=== PATIENT | male | born 1955 | race Caucasian/White ===

== ENCOUNTER 2020-05-16 07:44 | Day surgery (SDC) | payer OTHER ==
[~2020-05-16] VITALS: Ht 172.7 cm; Wt 91.8 kg
[~2020-05-16 07:44] MED LIST: ALLO300 PO; Androgel5 GM; FEXPSEER PO; FISH1000; FISH1000 PO; GEMF600; GEMF600 PO; HYDR.5TC; IBUP800; Prevacid Soluta30 MG JT; TAMS.4ER; TRIA80TC TOP; ZOLP10 PO
[2020-05-16] MEDS ORDERED: Lisinopril2.5 MG (08:07)
[2020-05-16] MEDS ORDERED: DOXE10 (08:08)
[2020-05-16] MEDS ORDERED: METFORMIN ER G500 MG (08:08)
--- NOTE | 2020-05-16 08:21 | NUR ---
05/16/20 0821 Mercedez Adler 1 TRY RIGHT UPPER ARM BLEW
== END 2020-05-16 10:09 | disposition home or self-care (01) ==
LOC: ORSCSDS 07:44
PROVIDERS: Internal Medicine Gastroenterology
PROC: 0DBN8ZX Excision of Sigmoid Colon, Via Natural or Artificial Opening Endoscopic, Diagnostic (ICD-10-PCS; principal; 2020-05-16 09:00)
PROC: 0DBH8ZX Excision of Cecum, Via Natural or Artificial Opening Endoscopic, Diagnostic (ICD-10-PCS; principal; 2020-05-16 09:00)
DX: Z12.11 Encounter for screening for malignant neoplasm of colon (principal); Z86.010 Personal history of colon polyps; D12.0 Benign neoplasm of cecum; K63.5 Polyp of colon; Z79.899 Other long term (current) drug therapy; K57.30 Diverticulosis of large intestine without perforation or abscess without bleeding; K64.4 Residual hemorrhoidal skin tags; K21.9 Gastro-esophageal reflux disease without esophagitis; Z87.891 Personal history of nicotine dependence
CPT/HCPCS: 82947; 88305; J2704; J7120

== ENCOUNTER 2021-03-08 06:29 | Day surgery (SDC) | payer OTHER ==
[~2021-03-08] VITALS: Ht 172.7 cm; Wt 95.4 kg
[~2021-03-08 06:29] MED LIST changes: +DOXE10; +Lisinopril2.5 MG; +METFORMIN ER G500 MG PO
[2021-03-08] MEDS ORDERED: Aspir 8181 MG PO (07:02)
[2021-03-08] MEDS ORDERED: LACT PO (07:04)
[2021-03-08] MEDS ORDERED: ATOR40TA PO (09:55)
--- NOTE | 2021-03-08 12:17 | NUR ---
DISCHARGE PT REMAINED A&OX3 AND DENIED ANY PAIN DURING RECOVERY. RIGHT RADIAL SITE TR BAND REMOVED-CLOTH DOT, WHITE BOARD AND SLING IN PLACE-CDI NO HEMATOMA NOTED. PT UP TO RESTROOM WITH STEADY GAIT AND REQUIRED LITTLE ASSISTANCE FROM SPOUSE WITH DRESSING. IV DC'D WITH CANULA IN TACT. NEW PRESCRIPTION CALLED TO [facility] ([place]). DISCHARGE PAPERWORK GONE OVER WITH PT AND SPOUSE. PT AND SPOUSE VERBALLY STATED THE UNDRESTANDING OF THE DISCHARGE EDUCATION AND DENIED ANY QUESTIONS AT THIS TIME. PT WHEELED OUT BY THIS NURSE.
[2021-04-03] MEDS ORDERED: HYDCHL25 PO (06:41)
== END 2021-03-08 12:15 | disposition home or self-care (01) ==
LOC: MHTC 06:29
PROC: B2111ZZ Fluoroscopy of Multiple Coronary Arteries using Low Osmolar Contrast (ICD-10-PCS; principal; 2021-03-08)
PROC: 4A023N7 Measurement of Cardiac Sampling and Pressure, Left Heart, Percutaneous Approach (ICD-10-PCS; principal; 2021-03-08)
DX: I47.2 Ventricular tachycardia (principal); I25.10 Atherosclerotic heart disease of native coronary artery without angina pectoris; I49.3 Ventricular premature depolarization; I44.1 Atrioventricular block, second degree; I10 Essential (primary) hypertension
CPT/HCPCS: 76937; 85347; 93454; 93571; 99152; 99153; A9270; C1769; C1887; C1894; J1644; J2250; J2370; J3010; J7030; J7050; Q9967